=== PATIENT | female | born 1995 | race Caucasian/White ===

== ENCOUNTER 2021-02-27 02:01 | Emergency (ER) | payer SELFPAY ==
[2021-02-27 02:27] VITALS: BP 129/82
--- NOTE | 2021-02-27 02:32 | ED General ---
General Chief Complaint: General Problems/Pain Stated Complaint: BRUISE ON RT BREAST Source of Information: Patient Exam Limitations: No Limitations History of Present Illness Date Seen by Provider: February 27, 2021 Time Seen by Provider: 02:22 Initial Comments Patient presents ER by private conveyance with her significant other chief com plaint that for the past 2 to 3 days she been having some swelling and tenderness in both breasts which she did not think much of because this is unusual for her Menses. She noticed this morning however that she had bright red and purple bruise over her right breast which is very tender to palpation. She denies any trauma. Her last menstrual period was 1 month ago and she expec ts to start anytime. She is never had this before. She is not having any discharge from the nipple. No fevers chills nausea. She is a G0. Allergies and Home Medications Allergies Coded Allergies: No Known Drug Allergies (Unverified , 02/27/21) Home Medications Amoxicillin/Potassium Clav 1 Each Tablet, 1 EACH PO BID Prescribed by: NANDA BASSETT on 02/27/21 0250 Hydrocodone/Acetaminophen 1 Each Tablet, 1 TAB PO Q6H PRN for PAIN-MODERATE (5- 7) Prescribed by: NANDA BASSETT on 02/27/21 0251 Patient Home Medication List Home Medication List Reviewed: Yes Review of Systems Review of Systems Constitutional: No chills, No diaphoresis EENTM: No ear discharge, No ear pain Respiratory: No cough, No short of breath Cardiovascular: No chest pain, No Hx of Intervention Gastrointestinal: No abdominal pain, No nausea, No vomiting Genitourinary: No discharge, No dysuria Musculoskeletal: No back pain, No joint pain All Other Systems Reviewed Negative Unless Noted: Yes Past Hpqyvpd-Lozhzl-Kxalls Hx Patient Social History Alcohol Use: Denies Use Smoking Status: Never a Smoker Physical Exam Vital Signs Capillary Refill : Height, Weight, BMI Height: '" Weight: lbs. oz. kg; BMI Method: General Appearance: WD/WN, Anxious Eyes: Bilateral Eye Normal Inspection, Bilateral Eye PERRL, Bilateral Eye EOMI HEENT: PERRL/EOMI, Pharynx Normal, Moist Mucous Membranes Respiratory: Lungs Clear, Normal Breath Sounds, No Accessory Muscle Use, No Respiratory Distress Cardiovascular: Regular Rate, Rhythm, No Edema, Normal Peripheral Pulses Neurologic/Psychiatric: Alert, Oriented x3 Skin: Other (There is a 4 to 5 cm diameter circumferential ecchymotic appearing area at the 1 to 2 o'clock position on the right breast superior/medial to the nipple. The nipple is inverted and without any discharge noted. There is no induration, warmth or fluctuance palpable. No mass palpable. Small dense fibroadipose feeling amount of tissue at the 6 o'clock position that is not tender on the right breast. No palpable large lymph nodes in the axilla or chest.) Progress/Results/Core Measures Suspected Sepsis SIRS Temperature: Pulse: Respiratory Rate: Blood Pressure / Mean: Results/Orders My Orders Orders - NANDA BASSETT Hydrocodone/Apap 5/325 Tablet (Lortab 5 (02/27/21 02:45) Ceftriaxone For Iv Use (Rocephin For I (02/27/21 02:45) Ceftriaxone For Im Use (Rocephin For Im (02/27/21 02:52) Lidocaine 1% Inj 20 Ml (Xylocaine 1% Inj (02/27/21 03:00) Rx-Hydrocodone/Apap 5-325 Mg (Rx-Vicodin (02/27/21 03:00) Medications Given in ED Current Medications Medications Dose Ordered Sig/Jr Route Start Time Stop Time Status Last Admin Dose Admin Acetaminophen/ Hydrocodone Bitart 1 ea ONCE ONCE PO 02/27/21 02:45 02/27/21 02:46 DC 02/27/21 02:48 1 EA Acetaminophen/ Hydrocodone Bitart 1 ea Q6H PRN PO 02/27/21 03:00 02/27/21 03:02 1 EA Lidocaine HCl 2.1 ml ONCE ONCE INJ 02/27/21 03:00 02/27/21 03:01 DC 02/27/21 02:59 2.1 ML Vital Signs/I&O Capillary Refill : Progress Note : Time: 02:45 Progress Note Plan to cover her for mastitis with some Rocephin and Augmentin over the weekend and follow-up with Dr. Don Monday for appropriate management. Hydrocodone for her discomfort. A warm washcloth was provided for her. Departure Impression Primary Impression: Breast pain Additional Impression: Bruise of breast Qualified Codes: S20.01XA - Contusion of right breast, initial encounter Disposition: HOME, SELF-CARE Condition: Stable Departure-Patient Inst. Decision time for Depature: 02:46 Referrals: CAM DON MD NO,LOCAL PHYSICIAN (PCP) Primary Care Physician Patient Instructions: Mastalgia (DC) Add. Discharge Instructions: Take the Augmentin twice a day with food for the next week. Warm moist washcloths applied as often as necessary for pain relief. Tylenol 650 mg every 8 hours as necessary for pain. Ibuprofen 800 mg every 8 hours as necessary for pain. Hydrocodone 1 tablet every 6 hours as necessary for severe breakthrough pain. Monday morning call Dr. Don and follow-up in the clinic for appropriate management of your symptoms. All discharge instructions reviewed with patient and/or family. Voiced understanding. Scripts Hydrocodone/Acetaminophen (Hydrocodone-Acetamin 5-325 mg) 1 Each Tablet 1 TAB PO Q6H PRN for PAIN-MODERATE (5-7), #15 TAB 0 Refills Prov: NANDA BASSETT 02/27/21 Amoxicillin/Potassium Clav (Augmentin 875-125 Tablet) 1 Each Tablet 1 EACH PO BID for 7 Days, #14 TAB 0 Refills Prov: NANDA ABSSETT 02/27/21 Work/School Note: Work Release Form Date Seen in the Emergency Department: February 27, 2021 Return to Work: March 02, 2021 Restrictions: No Restrictions Copy Copies To 1: CAM DON MD, TITUS J February 27, 2021 02:32
[2021-02-27] MEDS ORDERED: cefTRIAXone FOR IV USE 1,000 MG in WATER (STERILE) FOR INJECTION 10 ML IV ONE (02:45)
[2021-02-27] MEDS: HYDROcodone/APAP 5 MG/325 MG (LORTAB) TAB PO ONE (02:48)
[2021-02-27] MEDS ORDERED: ACHD5005 PO (02:50)
[2021-02-27] MEDS ORDERED: AMOX-358 PO (02:50)
[2021-02-27] MEDS: LIDOCAINE 1% INJ 20 ML 20 ML VIAL INJ ONE (02:59)
[2021-02-27] MEDS: cefTRIAXone 1,000 MG/2.86 ml vial (IM ONLY) IM STA (02:59)
== END 2021-02-27 03:39 | disposition home or self-care (01) ==
LOC: ER 02:06
DX: S20.01XA Contusion of right breast, initial encounter (principal); X58.XXXA Exposure to other specified factors, initial encounter
CPT/HCPCS: 99284